=== PATIENT | male | born 1930 | race Caucasian/White ===

== ENCOUNTER 2017-05-31 13:54 | Emergency (ER) | payer OTHER, BC ==
[~2017-05-31] VITALS: Ht 182.9 cm; Wt 70.0 kg
[2017-05-31 14:03] VITALS: TEMP 36.7; Ht 182.9 cm; Wt 70.0 kg
[2017-05-31] MEDS ORDERED: SODIUM CHLORIDE 0.9% 1000ML 1,000 ML IV STA (14:23)
[2017-05-31 14:40] VITALS: O2SAT 94
[2017-05-31] MEDS ORDERED: CHOL1000 PO (15:00)
[2017-05-31] MEDS ORDERED: CARB25TA12 PO ×2 (15:00)
[2017-05-31] MEDS ORDERED: FERR1TAB13 PO (15:00)
[2017-05-31] MEDS ORDERED: TAMS0.4C38 PO (15:00)
[2017-05-31] MEDS ORDERED: CARB25TA16 PO (15:00)
[2017-05-31] MEDS ORDERED: CEFT1INJ57 IV (15:00)
[2017-05-31] MEDS ORDERED: ASPCH81X PO (15:00)
[2017-05-31] MEDS ORDERED: SERT50TA PO (15:00)
[2017-05-31] MEDS ORDERED: AZL/5 PO (15:00)
[2017-05-31] MEDS ORDERED: IBUP-1050 PO (15:00)
[2017-05-31] MEDS ORDERED: OSEL30CA PO (15:00)
[2017-05-31] MEDS ORDERED: ACET500T58 PO (15:00)
[2017-05-31] MEDS ORDERED: CYAN10005 PO (15:00)
[2017-05-31] MEDS ORDERED: MELA3TAB PO (15:00)
--- NOTE | 2017-05-31 15:23 | EMERGENCY ROOM VISIT NOTE ---
History Report prepared by Oksana: Balaji Valdez Under the Supervision of: Dr. Derrick Cheatham M.D. First contact with patient: 14:18 Chief Complaint: ILLNESS History of Present Illness The patient is a 86 year old male who presents to the Emergency Room with complaints of waxing and waning confusion over past couple of days. He states he is increasingly nervous due to worsening stability when walking and is currently in rehab at [facility] for this. He states he has cough and congestion. He complains of intermittent testicular pain that is unchanged from baseline. Of note, the patient states he has had a hernia in the past. Limited HPI 2/2 dementia. Source of History: patient Onset: prior to arrival Position: other (global) Timing: other (1 episode) Associated Symptoms: + cough Note: Patient complains of testicular pain that is unchanged from baseline. Patient complains of worsening stability when walking. Review of Systems See HPI for pertinent positives and negatives. A total of ten systems were reviewed and were otherwise negative. Past Medical & Surgical Medical Problems: (1) Hernia (2) Parkinson disease Social History Smoking Status: Former Smoker Marital Status: Housing Status: lives with significant other Current/Historical Medications Scheduled Aspirin (Aspirin Chewable), 81 MG PO QAM Azithromycin (Zithromax), 250 MG PO DAILY Carbidopa/Levodopa (Sinemet 25MG/100MG), 1.5 TAB PO BID Carbidopa/Levodopa (Sinemet 25MG/100MG), 2 TAB PO DAILYBB Carbidopa/Levodopa (Sinemet Cr 25MG/100MG), 1 TAB PO HS Ceftriaxone Sod (Rocephin), 1 GM IV DAILY Cholecalciferol (Vitamin D3), 1,000 UNITS PO QAM Cyanocobalamin (Vitamin B-12), 1,000 MCG PO QAM Ferrous Sulfate (Kp Ferrous Sulfate), 325 MG PO QAM Melatonin (Melatonin), 3 MG PO HS Oseltamivir Phosphate (Tamiflu), 30 MG PO DAILY Rasagiline (Azilect), 1 MG PO DAILY Sertraline (Zoloft), 50 MG PO DAILY Tamsulosin Hcl (Flomax), 0.4 MG PO HS Scheduled PRN Acetaminophen (Acetaminophen), 1 TAB PO Q4 PRN for UNDECIDED Ibuprofen (Advil), 400 MG PO Q6H PRN for UNDECIDED Allergies Coded Allergies: Lorazepam (Unverified Adverse Reaction, Unknown, UNKNOWN, 05/31/17) Meperidine (Unverified Adverse Reaction, Unknown, UNKNOWN, 05/31/17) Physical Exam Vital Signs Date Time Temp Pulse Resp B/P (MAP) Pulse Ox O2 Delivery O2 Flow Rate FiO2 05/31/17 18:00 80 20 160/81 96 Room Air 05/31/17 16:00 84 20 168/75 97 Room Air 05/31/17 14:40 94 Room Air 05/31/17 14:12 87 05/31/17 14:03 36.7 86 20 181/79 96 Room Air Physical Exam GENERAL: Awake, alert, chronically ill appearing, in no distress HENT: Normocephalic, atraumatic. Dry cracked mucous membrane. EYES: Normal conjunctiva. Sclera non-icteric. NECK: Supple. No nuchal rigidity. FROM. No JVD. RESPIRATORY: Clear to auscultation. CARDIAC: Regular rate, normal rhythm. Extremities warm and well perfused. Pulses equal. ABDOMEN: Soft, non-distended. No tenderness to palpation. No rebound or guarding. No masses. RECTAL: Deferred. MUSCULOSKELETAL: Chest examination reveals no tenderness. The back is symmetrical on inspection without obvious abnormality. There is no CVA tenderness to palpation. No joint edema. Scattered ecchymosis on bilateral upper extremities. LOWER EXTREMITIES: Calves are equal size bilaterally and non-tender. No edema. No discoloration. NEURO: Normal sensorium. No sensory or motor deficits noted. SKIN: No rash or jaundice noted. GENITOURINARY: unremarkable Medical Decision & Procedures ER Provider Diagnostic Interpretation: Radiology results as stated below per my review and radiologist interpretation: CT SCAN OF THE BRAIN WITHOUT IV CONTRAST CLINICAL HISTORY: Change in mental status. COMPARISON STUDY: No priors. TECHNIQUE: Unenhanced axial CT scan of the brain is performed from the vertex to the skull base. A dose lowering technique was utilized adhering to the principles of ALARA. CT DOSE: 800.40 mGycm FINDINGS: Brain parenchyma: There are age-related involutional changes noting mild subcortical and periventricular microangiopathic change. There is no hemorrhage, mass effect, or evidence of acute territorial ischemia by CT criteria. Fair-white matter is preserved. No extra-axial fluid collection is seen. Ventricles, sulci, cisterns: Prominent secondary to involutional change. Intracranial vasculature: There is atherosclerotic calcification of the cavernous carotid and vertebral arteries. Calvarium: Unremarkable. Soft tissues: There is a lipoma in the left frontal scalp. Sinuses and mastoids: There is a small retention cyst in the left sphenoid sinus. The remaining visualized paranasal sinuses are clear. The mastoid air cells are well pneumatized. Orbits: The bony orbits are grossly intact. A calcification is noted in the right globe. IMPRESSION: There is no hemorrhage, mass effect, or evidence of acute territorial ischemia by CT criteria. Electronically signed by: Guillermo Iglesias M.D. 05/31/2017 3:46 PM Dictated Date/Time: 05/31/2017 3:43 PM SINGLE VIEW CHEST CLINICAL HISTORY: Atypical chest pain. FINDINGS: An AP, portable, upright chest radiograph is obtained. No prior studies are available for comparison at the time of dictation. The examination is degraded by portable technique and patient rotation. The heart is top normal for projection and there is atherosclerotic calcification of the thoracic aorta. The pulmonary vasculature is noncongested. Chronic interstitial thickening similar to previous. Patchy airspace consolidation is present at both lung bases, left greater than right. No large pleural effusion or pneumothorax is seen. The skeletal structures are osteopenic. The bony thorax is grossly intact. IMPRESSION: There is patchy airspace consolidation present at both lung bases, left greater than right. Correlate clinically for evidence of pneumonia/aspiration pneumonitis. Radiographic follow-up to resolution is recommended. Electronically signed by: Guillermo Iglesias M.D. 05/31/2017 3:28 PM Dictated Date/Time: 05/31/2017 3:27 PM ULTRASOUND TESTES AND SCROTUM CLINICAL HISTORY: Testicular pain. COMPARISON STUDY: No priors. TECHNIQUE: Real-time, grayscale, and color Doppler sonography of the testes and scrotum is performed. Images are reviewed in the transverse and longitudinal planes. FINDINGS: The testes are moderately atrophic and homogeneous in echotexture. The right testis measures 2.5 x 1.8 x 2.0 cm and the left testis measures 3.4 x 1.9 x 2.0 cm. No intratesticular mass is seen. Small cystic foci are incidentally noted in both testes. There is tubular ectasia of the rete testis seen on the left. Testicular blood flow is normal and symmetric. Normal Doppler waveforms are identified in both testes. The epididymal heads are normal in appearance. The right epididymal head measures 1.4 cm in length and the left epididymal head measures 1.6 cm in length. There is a large and minimally complex left epididymal head cyst/spermatocele. This measures up to 5.0 cm. There is a small right-sided hydrocele. No left-sided hydrocele or varicocele is seen. A scrotal sandra is noted on the right. IMPRESSION: 1. No acute sonographic abnormality is identified in the scrotum. 2. There is a small right-sided hydrocele. 2. A 5.0 cm minimally complex left epididymal head cyst/spermatocele is identified. Electronically signed by: Guillermo Iglesias M.D. 05/31/2017 5:20 PM Dictated Date/Time: 05/31/2017 5:07 PM Laboratory Results 05/31/17 15:17 Red Blood Count 3.34, Mean Corpuscular Volume 95.5, Mean Corpuscular Hemoglobin 32.6, Mean Corpuscular Hemoglobin Concent 34.2, Mean Platelet Volume 9.8, Neutrophils (%) (Auto) 67.2, Lymphocytes (%) (Auto) 14.0, Monocytes (%) (Auto) 12.2, Eosinophils (%) (Auto) 5.8, Basophils (%) (Auto) 0.5, Neutrophils # (Auto ) 2.65, Lymphocytes # (Auto) 0.55, Monocytes # (Auto) 0.48, Eosinophils # (Auto ) 0.23, Basophils # (Auto) 0.02 05/31/17 15:17 Test 05/31/17 00:00 05/31/17 14:40 05/31/17 15:17 Urine Color YELLOW Urine Appearance CLEAR (CLEAR) Urine pH 5.5 (4.5-7.5) Urine Specific Mcclure 1.014 (1.000-1.030) Urine Protein 1+ (NEG) Urine Glucose (UA) NEG (NEG) Urine Ketones NEG (NEG) Urine Occult Blood TRACE (NEG) Urine Nitrite NEG (NEG) Urine Bilirubin NEG (NEG) Urine Urobilinogen NEG (NEG) Urine Leukocyte Esterase NEG (NEG) Urine WBC (Auto) 0 /hpf (0-5) Urine RBC (Auto) 0-4 /hpf (0-4) Urine Hyaline Casts (Auto) 1-5 /lpf (0-5) Urine Epithelial Cells (Auto) 0-5 /lpf (0-5) Urine Bacteria (Auto) NEG (NEG) Influenza Type A Antigen Neg for Influ A (NEG) Influenza Type B Antigen Neg for Influ B (NEG) White Blood Count 3.94 K/uL (4.8-10.8) Red Blood Count 3.34 M/uL (4.7-6.1) Hemoglobin 10.9 g/dL (14.0-18.0) Hematocrit 31.9 % (42-52) Mean Corpuscular Volume 95.5 fL (80-100) Mean Corpuscular Hemoglobin 32.6 pg (25-34) Mean Corpuscular Hemoglobin Concent 34.2 g/dl (32-36) Platelet Count 143 K/uL (130-400) Mean Platelet Volume 9.8 fL (7.4-10.4) Neutrophils (%) (Auto) 67.2 % Lymphocytes (%) (Auto) 14.0 % Monocytes (%) (Auto) 12.2 % Eosinophils (%) (Auto) 5.8 % Basophils (%) (Auto) 0.5 % Neutrophils # (Auto) 2.65 K/uL (1.4-6.5) Lymphocytes # (Auto) 0.55 K/uL (1.2-3.4) Monocytes # (Auto) 0.48 K/uL (0.11-0.59) Eosinophils # (Auto) 0.23 K/uL (0-0.5) Basophils # (Auto) 0.02 K/uL (0-0.2) RDW Standard Deviation 48.8 fL (36.4-46.3) RDW Coefficient of Variation 14.0 % (11.5-14.5) Immature Granulocyte % (Auto) 0.3 % Immature Granulocyte # (Auto) 0.01 K/uL (0.00-0.02) Anion Gap 5.0 mmol/L (3-11) Est Creatinine Clear Calc Drug Dose 32.8 ml/min Estimated GFR () 45.3 Estimated GFR (Non- 39.1 BUN/Creatinine Ratio 13.3 (10-20) Calcium Level 9.0 mg/dl (8.5-10.1) Total Bilirubin 0.3 mg/dl (0.2-1) Direct Bilirubin < 0.1 mg/dl (0-0.2) Aspartate Amino Transf (AST/SGOT) 62 U/L (15-37) Alanine Aminotransferase (ALT/SGPT) 12 U/L (12-78) Alkaline Phosphatase 87 U/L (45-117) Troponin I < 0.015 ng/ml (0-0.045) Total Protein 6.6 gm/dl (6.4-8.2) Albumin 2.7 gm/dl (3.4-5.0) Lipase 134 U/L (73-393) Laboratory results reviewed by me Medications Administered Medications (Trade) Dose Ordered Sig/Hadley Route Start Time Stop Time Status Last Admin Dose Admin Sodium Chloride 1,000 ml @ 999 mls/hr Q1H1M STAT IV 05/31/17 14:23 05/31/17 15:23 DC 05/31/17 14:23 999 MLS/HR Carbidopa/Levodopa (Sinemet 25/ 100MG Tab) 1.5 tab NOW STAT PO 05/31/17 17:54 05/31/17 17:57 DC 05/31/17 18:09 1.5 TAB Azithromycin (Zithromax Tab) 500 mg NOW ONCE PO 05/31/17 18:00 05/31/17 18:01 DC 05/31/17 18:10 500 MG ECG Indication: altered mental status Rate (beats per minute): 84 Rhythm: sinus rhythm, other (fusion complexes) Findings: no acute ischemic change, other (normal axis) Change: Patient's EKG interpreted by me. ED Course 1418: The patient was evaluated in room B2. A complete history and physical exam was performed. 1655: I discussed the patient with the Charge Nurse at [facility]. They will evaluate the patient for further treatment. 1750: I reevaluated the patient. Discussed results and discharge instructions: He verbalized understanding and agreement. The patient is ready for discharge. Medical Decision I reviewed the patient's past medical history, medications, and the nursing notes as described above. The patient's presentation and history were concerning for pneumonia, bronchitis , UTI, dehydration, ACS, electrolyte, ICH, and CVA. The patient is 86-year-old gentleman with a past medical history of Parkinson's disease as well as associated dementia presents emergency department from [facility] for waxing and waning confusion in the setting of having recent fever and setting of being treated for orchitis/prostatitis with ceftriaxone per hpi. Additional hx provided by [facility] monorail charger operator and daughter at bedside. On arrival the patient is alert and oriented, in no acute distress, afebrile stable vital signs. Patient reports he has had testicular pain that comes and goes. Although he is a poor historian on his recent medical course. WBC wnl. UA negative. Cr. 1.5 however, no prior values for comparison. Patient appears clinically dry. CXR with ?basilar infiltrates. CT head negative for acute findings. Given report of fever earlier in the week will add additional antibiotic coverage for atypicals with Azithromycin. Testicular ultrasound negative for infectious findings suggesting improvement from previous orchitis. Moreover, UA reassuring. I d/w the patient's case with monorail charger operator at [facility] and she reports that the patient has urology appointment scheduled for tomorrow. I explained findings today and that there is no indication for admission at this time. Daughter at the bedside expressing concerned that she wants to make sure they continue his parkinson's medications as she feels he becomes more confused when he stops taking them. Findings and plan for follow-up reviewed with patient. Patient agreeable and d/c'd per discharge instructions. Medication Reconcilliation Current Medication List: was personally reviewed by me Blood Pressure Screening Patient's blood pressure: Elevated blood pressure Blood pressure disposition: Elevated BP felt to be situational Consults Time Called: 1654 Consulting Physician: Charge Nurse - [facility] Returned Call: 1655 I discussed the patient with [facility]. They will evaluate the patient for further treatment. Impression Primary Impression: Pneumonia Additional Impression: Dehydration Scribe Attestation The scribe's documentation has been prepared under my direction and personally reviewed by me in its entirety. I confirm that the note above accurately reflects all work, treatment, procedures, and medical decision making performed by me. Departure Information Dispostion Home / Self-Care Prescriptions Azithromycin (Zithromax) 250 Mg Tab 250 MG PO DAILY, #4 TAB Prov: Derrick Cheatham M.D. 05/31/17 Patient Instructions ED Dehydration, ED Pneumonia Adult, My [facility] Additional Instructions Please follow up with your urologist as scheduled tomorrow and your physician tomorrow for re-evaluation. You likely have a pneumonia base on your chest xray. Otherwise, your exam, EKG, chest xray, and lab results did not show signs of an emergent condition at this time. Acetaminophen for pain and fevers as needed. Continue your current ceftriaxone and take azithromycin for additional coverage for your pneumonia. We recommend you continue your Sinemet for your Parkinson's disease and that you consult your Parkinson's specialist to consider any potential changes. Drink plenty of fluids to ensure hydration. Return to the emergency department for worsening symptoms as described in the accompanying instructions. Problem Qualifiers
--- NOTE | 2017-05-31 15:29 | DIAGNOSTIC IMAGING REPORT ---
SINGLE VIEW CHEST CLINICAL HISTORY: Atypical chest pain. FINDINGS: An AP, portable, upright chest radiograph is obtained. No prior studies are available for comparison at the time of dictation. The examination is degraded by portable technique and patient rotation. The heart is top normal for projection and there is atherosclerotic calcification of the thoracic aorta. The pulmonary vasculature is noncongested. Chronic interstitial thickening similar to previous. Patchy airspace consolidation is present at both lung bases, left greater than right. No large pleural effusion or pneumothorax is seen. The skeletal structures are osteopenic. The bony thorax is grossly intact. IMPRESSION: There is patchy airspace consolidation present at both lung bases, left greater than right. Correlate clinically for evidence of pneumonia/aspiration pneumonitis. Radiographic follow-up to resolution is recommended. Electronically signed by: Guillermo Iglesias M.D. 05/31/2017 3:28 PM Dictated Date/Time: 05/31/2017 3:27 PM
[2017-05-31 15:31] LABS: BASO % 0.5 %; BASO ABS # 0.02 K/uL (0-0.2); EOS % 5.8 %; EOS ABS # 0.23 K/uL (0-0.5); HEMATOCRIT 31.9 % (42-52); HEMOGLOBIN 10.9 g/dL (14.0-18.0); IG# 0.01 K/uL (0.00-0.02); LYMPH ABS # 0.55 K/uL (1.2-3.4); MEAN CELL VOLUME 95.5 fL (80-100); MEAN CORPUSCULAR HEMOGLOBIN 32.6 pg (25-34); MEAN CORPUSCULAR HGB CONC 34.2 g/dl (32-36); MEAN PLATELET VOLUME 9.8 fL (7.4-10.4); MONO % 12.2 %; MONO ABS # 0.48 K/uL (0.11-0.59); NEUT % 67.2 %; NEUT ABS # 2.65 K/uL (1.4-6.5); PLATELET COUNT 143 K/uL (130-400); RED CELL DISTRIBUTION WIDTH SD 48.8 fL (36.4-46.3); WHITE BLOOD COUNT 3.94 K/uL (4.8-10.8)
[2017-05-31 15:32] LABS: INFLUENZA B ANTIGEN Neg for Influ B (NEG)
--- NOTE | 2017-05-31 15:47 | DIAGNOSTIC IMAGING REPORT ---
CT SCAN OF THE BRAIN WITHOUT IV CONTRAST CLINICAL HISTORY: Change in mental status. COMPARISON STUDY: No priors. TECHNIQUE: Unenhanced axial CT scan of the brain is performed from the vertex to the skull base. A dose lowering technique was utilized adhering to the principles of ALARA. CT DOSE: 800.40 mGycm FINDINGS: Brain parenchyma: There are age-related involutional changes noting mild subcortical and periventricular microangiopathic change. There is no hemorrhage, mass effect, or evidence of acute territorial ischemia by CT criteria. Fair-white matter is preserved. No extra-axial fluid collection is seen. Ventricles, sulci, cisterns: Prominent secondary to involutional change. Intracranial vasculature: There is atherosclerotic calcification of the cavernous carotid and vertebral arteries. Calvarium: Unremarkable. Soft tissues: There is a lipoma in the left frontal scalp. Sinuses and mastoids: There is a small retention cyst in the left sphenoid sinus. The remaining visualized paranasal sinuses are clear. The mastoid air cells are well pneumatized. Orbits: The bony orbits are grossly intact. A calcification is noted in the right globe. IMPRESSION: There is no hemorrhage, mass effect, or evidence of acute territorial ischemia by CT criteria. Electronically signed by: Guillermo Iglesias M.D. 05/31/2017 3:46 PM Dictated Date/Time: 05/31/2017 3:43 PM
[2017-05-31 15:49] LABS: ALBUMIN 2.7 gm/dl (3.4-5.0); ALT/SGPT 12 U/L (12-78); AST/SGOT 62 U/L (15-37); BLOOD UREA NITROGEN 21 mg/dl (7-18); CARBON DIOXIDE 26 mmol/L (21-32); CREATININE 1.57 mg/dl (0.60-1.40); GLUCOSE 116 mg/dl (70-99); LIPASE 134 U/L (73-393); SODIUM 138 mmol/L (136-145)
[2017-05-31 15:54] LABS: ALKALINE PHOSPHATASE 87 U/L (45-117); TOTAL PROTEIN 6.6 gm/dl (6.4-8.2)
--- NOTE | 2017-05-31 17:21 | DIAGNOSTIC IMAGING REPORT ---
ULTRASOUND TESTES AND SCROTUM CLINICAL HISTORY: Testicular pain. COMPARISON STUDY: No priors. TECHNIQUE: Real-time, grayscale, and color Doppler sonography of the testes and scrotum is performed. Images are reviewed in the transverse and longitudinal planes. FINDINGS: The testes are moderately atrophic and homogeneous in echotexture. The right testis measures 2.5 x 1.8 x 2.0 cm and the left testis measures 3.4 x 1.9 x 2.0 cm. No intratesticular mass is seen. Small cystic foci are incidentally noted in both testes. There is tubular ectasia of the rete testis seen on the left. Testicular blood flow is normal and symmetric. Normal Doppler waveforms are identified in both testes. The epididymal heads are normal in appearance. The right epididymal head measures 1.4 cm in length and the left epididymal head measures 1.6 cm in length. There is a large and minimally complex left epididymal head cyst/spermatocele. This measures up to 5.0 cm. There is a small right-sided hydrocele. No left-sided hydrocele or varicocele is seen. A scrotal sandra is noted on the right. IMPRESSION: 1. No acute sonographic abnormality is identified in the scrotum. 2. There is a small right-sided hydrocele. 2. A 5.0 cm minimally complex left epididymal head cyst/spermatocele is identified. Electronically signed by: Guillermo Iglesias M.D. 05/31/2017 5:20 PM Dictated Date/Time: 05/31/2017 5:07 PM
[2017-05-31] MEDS ORDERED: CARBIDOPA/LEVODOPA 25/100MG TAB PO STA (17:54)
[2017-05-31] MEDS ORDERED: AZIT250T PO (17:58)
[2017-05-31 18:00] VITALS: BP 160/81; PULSE 80; O2SAT 96
[2017-05-31] MEDS ORDERED: AZITHROMYCIN 250 MG TAB PO ONE (18:00)
== END 2017-05-31 18:35 | disposition home or self-care (01) ==
LOC: EDBD 13:54 → C.EDB 13:55
DX: J18.9 Pneumonia, unspecified organism (principal); E86.0 Dehydration; G20 Parkinson's disease; Z87.891 Personal history of nicotine dependence; Z79.82 Long term (current) use of aspirin